=== PATIENT | male | born 1985 | race Caucasian/White ===

== ENCOUNTER 2024-05-03 09:21 | Outpatient (CLI) | payer BC, SELFPAY | END 2024-05-03 09:22 | disposition home or self-care (01) | LOC: NFLDREF 05-04 08:46 | PROVIDERS: PCP Emergency Medicine; Visit Provider Emergency Medicine | DX: R39.15 Urgency of urination (principal); Z13.220 Encounter for screening for lipoid disorders; Z13.1 Encounter for screening for diabetes mellitus; Z12.5 Encounter for screening for malignant neoplasm of prostate | CPT/HCPCS: 80061; 82947; G0103 ==

== ENCOUNTER 2024-05-08 19:35 | Outpatient (CLI) | payer BC, SELFPAY ==
--- NOTE | 2024-06-05 08:21 | W.PM.SLEEP ---
Sleep Study Details Details Interpreting Provider: Blake Date of Sleep Study: 05/08/24 Sleep Study Details: STUDY TYPE:? Home unattended ? BMI:? 28.7 ORDERING PROVIDER:Dario Boyer INDICATION:? Concern about sleep apnea ? SLEEP SUMMARY:? 476 minutes monitored RESPIRATORY SUMMARY:? AHI 9.2, left lateral 1, supine 12, right lateral 6.9 Low oxygen 86 1.1% of study oxygen less than 90% Snoring 61.4% PERIODIC LIMB MOVEMENTS OF SLEEP:? Not recorded CARDIAC:? Range 49-107, mean spur 56.1 beats per minute IMPRESSION:? Mild obstructive sleep apnea with supine position dependency RECOMMENDATION: Treatment options include CPAP AutoSet, dental appliance and/or airway expansion surgery.
== END 2024-05-08 19:36 | disposition home or self-care (01) ==
LOC: SLEEP 19:36
PROVIDERS: PCP Emergency Medicine; Visit Provider Emergency Medicine
DX: G47.33 Obstructive sleep apnea (adult) (pediatric) (principal)
CPT/HCPCS: 95806